=== PATIENT | male | born 1955 | race Caucasian/White ===

== ENCOUNTER 2024-11-10 03:28 | Emergency (ER) | payer OTHER ==
[2024-11-10] MEDS: Diphtheria,Pertussis(Acell),Tetanus Vaccine 0.5 ML Syringe IM ONE (04:09)
== END 2024-11-10 05:19 | disposition home or self-care (01) ==
LOC: VM.ED 03:28
DX: S01.411A Laceration without foreign body of right cheek and temporomandibular area, initial encounter (principal); S61.412A Laceration without foreign body of left hand, initial encounter; Z23 Encounter for immunization; W01.198A Fall on same level from slipping, tripping and stumbling with subsequent striking against other object, initial encounter; Y93.89 Activity, other specified
CPT/HCPCS: 12013; 70450; 90471; 90715; 99283; 99283-25